=== PATIENT | female | born 1970 | race Caucasian/White ===

== ENCOUNTER 2018-04-13 00:39 | Emergency (ER) | payer OTHER, MEDICAID ==
[~2018-04-13] VITALS: Ht 162.6 cm; Wt 77.1 kg
[2018-04-13 00:45] VITALS: BP 118/73
[2018-04-13] MEDS ORDERED: KETOROLAC 30 MG/ML VIAL IM ONE (01:05)
[2018-04-13 01:35] VITALS: BP 97/56
== END 2018-04-13 01:55 | disposition home or self-care (01) ==
LOC: MED 00:39
DX: S93.601A Unspecified sprain of right foot, initial encounter (principal); Z88.0 Allergy status to penicillin; X50.3XXA Overexertion from repetitive movements, initial encounter; Y93.01 Activity, walking, marching and hiking; Y99.8 Other external cause status; Y92.89 Other specified places as the place of occurrence of the external cause
CPT/HCPCS: 73620; 96372; 99284; J1885

== ENCOUNTER 2018-07-21 21:17 | Inpatient (IN) | payer OTHER, MEDICAID ==
[~2018-07-21] VITALS: Ht 162.6 cm; Wt 69.9 kg
--- NOTE | 2018-07-21 21:17 | NUR ---
PT EDUARDO BLS. TAKEN TO BED 3
[2018-07-21 21:18] VITALS: BP 87/48
--- NOTE | 2018-07-21 21:22 | NUR ---
47 Y/O F BIBA W/C/O BODY ACHES X 1 DAY. PT STATES, "I WAS AT [employer] AND THEN WHEN THE BILL CAME I HAD BODY PAIN ALL OVER." PT DENIES N/V/D; SKIN IS INTACT, PINK/WARM/DRY; AAOX4, PERRL, WITH EVEN AND STEADY GAIT; LUNGS CLEAR BL, BREATHING UNLABORED; HR EVEN AND REGULAR, BL PERIPHERAL PULSES PRESENT; BS ACTIVE X4, NO TENDERNESS TO PALPATION, NO HEPATOSPLENOMEGALLY PALPATED, RESONANT TO PERCUSSION; PT DENIES ANY FEVER, CP, SOB, OR COUGH AT THIS TIME; PT STATES 10/10 PAIN AT THIS TIME; VSS; PATIENT POSITIONED FOR COMFORT; HOB ELEVATED; BEDRAILS UP X2; BED DOWN. ER MD MADE AWARE OF PTS STATUS
[2018-07-21] MEDS ORDERED: NACL 0.9% 2,000 ML IV ONE (22:20)
--- NOTE | 2018-07-21 22:30 | NUR ---
PT RESTING COMFORTABLY IN BED. NAD. RR EVEN/UNLABORED.
--- NOTE | 2018-07-21 22:31 | NUR ---
EKG PERFORMED AT BEDSIDE, PT COVERED IN GOWN DURING PROCEDURE. SINUS TACHYCARDIA
--- NOTE | 2018-07-21 22:50 | NUR ---
Dr. Chahal evaluating patient at bedside.
[2018-07-21 22:56] LABS: BASOPHILS % (AUTO) 0.4 % (0.0-2.0); EOSINOPHILS # (AUTO) 0.1 K/uL (0-0.4); EOSINOPHILS % (AUTO) 1.8 % (0.0-4.0); HEMATOCRIT 32.5 % (36-48); HEMOGLOBIN 10.6 g/dL (12.0-16.0); LYMPHOCYTES # (AUTO) 2.1 K/uL (2.5-16.5); LYMPHOCYTES % (AUTO) 35.7 % (20.5-51.1); MEAN CORPUSCULAR HEMOGLOBIN 26 pg (27-31); MEAN CORPUSCULAR HGB CONC 33 g/dL (33-37); MEAN CORPUSCULAR VOLUME 79.8 fL (80-94); MONOCYTES # (AUTO) 0.4 K/uL (0.8-1.0); NEUTROPHILS # (AUTO) 3.3 K/uL (1.8-7.7); NEUTROPHILS % (AUTO) 55.1 % (42.2-75.2); PLATELET COUNT (AUTO) 134 K/uL (140-450); RED BLOOD CELL COUNT(AUTO) 4.07 MIL/uL (4.20-5.40)
[2018-07-21 23:05] LABS: CARBON DIOXIDE 25.8 mmol/L (21-32); CREATININE 0.7 mg/dL (0.6-1.3); POTASSIUM 3.8 mmol/L (3.5-5.1)
[2018-07-21] MEDS ORDERED: KETOROLAC 30 MG/ML VIAL IVP ONE (23:10)
[2018-07-21 23:11] LABS: ALBUMIN 3.2 g/dL (3.4-5.0); TOTAL BILIRUBIN 0.2 mg/dL (0.0-1.0)
[2018-07-22] MEDS ORDERED: AZITHROMYCIN 500 MG in DEXTROSE 5% 250 ML IV ONE (00:15)
[2018-07-22] MEDS ORDERED: MORPHINE SULFATE 2 MG/ML SYR IVP PRN (00:20)
[2018-07-22] MEDS ORDERED: ACETAMINOPHEN 325 MG TAB PO PRN (00:20)
[2018-07-22] MEDS ORDERED: LORazepam 2 MG/ML VIAL IM/IVP PRN (00:20)
[2018-07-22] MEDS ORDERED: HYDROcodone/APAP 5/325 MG 1 TAB TAB PO PRN (00:20)
[2018-07-22] MEDS ORDERED: ZOLPIDEM 5 MG TAB PO PRN (00:20)
[2018-07-22] MEDS ORDERED: ONDANSETRON 4 MG/2 ML VIAL IM/IVP PRN (00:20)
[2018-07-22] MEDS ORDERED: DOCUSATE SODIUM 100 MG GELCAP PO PRN (00:20)
--- NOTE | 2018-07-22 00:22 | NUR ---
Patient will be admitted to care of DR DENNIS. Admited to TELEMETRY. Will go to [id number]]. Belongings list completed.
--- NOTE | 2018-07-22 00:28 | NUR ---
Dr. Gutierrez evaluating patient at bedside.
[2018-07-22] MEDS ORDERED: LEVOFLOXACIN 750 MG/D5W PREMIX 150 ML IV ONE (00:30)
--- NOTE | 2018-07-22 00:50 | NUR ---
ADMITTED PT FROM ER VIA FREDDY. AAOX4. NO C/O PAIN AT THIS TIME. NO C/O SOB. ON ROOM AIR. IV TO RIGHT HAND #20G AND LEFT HAND #20G, PATENT AND INTACT. ORIENTED PT TO ROOM. DISCUSSED PLAN OF CARE, PT VERBALIZED UNDERSTANDING. SAFETY PRECAUTION IN PLACE. CALL LIGHT WITHIN REACH.
--- NOTE | 2018-07-22 00:54 | NUR ---
PT RESTING COMFORTABLY IN BED. NAD. RR EVEN/UNLABORED.
[2018-07-22] MEDS ORDERED: DEXTROSE 50% 50 ML SYR IVP PRN (00:55)
[2018-07-22] MEDS ORDERED: INSULIN LISPRO SLIDING SCALE 100 UNITS/ML VIAL SUBQ PRN (00:55)
[2018-07-22 01:00] VITALS: BP 95/47
[2018-07-22 01:14] LABS: PROTHROMBIN TIME 9.3 secs (10.8-13.4)
[2018-07-22] MEDS: NACL 0.9% 1,000 ML IV SCH ×2 (01:25→11:00)
--- NOTE | 2018-07-22 01:30 | NUR ---
PT'S BP 95/47. DR. MAN MADE AWARE. NO NEW ORDER AT THIS TIME.
[2018-07-22 01:31] LABS: CHOL/HDL RATIO 2.7 (1-4.5); MAGNESIUM 1.9 mg/dL (1.8-2.4); PHOSPHORUS 4.6 mg/dL (2.5-4.9); THYROID STIMULATING HORMONE 0.8 uIU/mL (0.34-3.74)
--- NOTE | 2018-07-22 01:42 | NUR ---
0136 SPUTUM CUP WAS GIVEN TO PATIENT TO GIVE SPUTUM SAMPLE. PATIENT VERBALLY REFUSED. LEFT CUP AT BEDSIDE
--- NOTE | 2018-07-22 03:45 | NUR ---
PT SLEEPING BUT EASILY AROUSABLE. NO S/S OF PAIN OR SOB.
[2018-07-22 04:00] VITALS: BP 99/62
--- NOTE | 2018-07-22 04:30 | NUR ---
PT REFUSED SCDS. PT AMBULATES WITHOUT ASSIST.
--- NOTE | 2018-07-22 06:21 | NUR ---
PT REFUSED BLOOD SUGAR CHECK. DR. MAN MADE AWARE.
[2018-07-22] MEDS: BLOOD GLUCOSE MONITORING 1 DEV DEV FS SCH ×2 (06:28→11:30)
--- NOTE | 2018-07-22 07:09 | NUR ---
ENDORSED PT TO DAY SHIFT NURSE. PT IN STABLE CONDITION.
--- NOTE | 2018-07-22 07:10 | NUR ---
RECEIVED REPORT FROM [employer]OMOTIVE TECHNICIAN NURSE. PATIENT LYING DOWN IN BED SLEEPING, AROUSABLE BY VOICE. NO DISTRESS NOTED. DENIES ANY PAIN. RESPIRATIONS EVEN, UNLABORED, ON ROOM AIR. AAOX3, CALM, COOPERATIVE, SKIN COLOR APPROPRIATE TO ETHNICITY, WARM TO TOUCH. SKIN IS INTACT. LUNGS CTA ON ALL LOBES. ABDOMEN SOFT, NON-DISTENDED. IV SITE COMPLETELY OUT, WILL INSERT NEW IV LINE LATER. REVIEWED PLAN OF CARE WITH PATIENT. PATIENT VERBALIZED UNDERSTANDING. SAFETY MEASURES IN PLACE, CALL LIGHT WITHIN REACH. WILL CONTINUE TO MONITOR.
--- NOTE | 2018-07-22 07:45 | NUR ---
PATIENT REFUSED AM BLOOD DRAW. WILL NOTIFY
[2018-07-22 08:00] VITALS: BP 96/56
[2018-07-22] MEDS ORDERED: FERROUS SULFATE 325 MG TABEC PO SCH (08:00)
[2018-07-22] MEDS ORDERED: AZITHROMYCIN 250 MG TAB PO SCH (09:00)
[2018-07-22] MEDS ORDERED: ASCORBIC ACID 500 MG TAB PO SCH (09:00)
[2018-07-22] MEDS ORDERED: NICOTINE TRANSD SYS 14 MG/24 HR PATCH TD SCH (09:00)
--- NOTE | 2018-07-22 09:01 | NUR ---
PATIENT LYING DOWN IN BED SLEEPING, AROUSABLE BY VOICE. NO DISTRESS NOTED. DENIES ANY PAIN. SCHEDULED MEDICATIONS NOT GIVEN DUE TO PATIENT REFUSING. WILL CONTINUE TO MONITOR.
--- NOTE | 2018-07-22 09:11 | NUR ---
PATIENT HAS BEEN SCREENED AND CATEGORIZED MODERATE NUTRITION RISK. PATIENT WILL BE SEEN WITHIN 3-5 DAYS OF ADMISSION. 07/24/18 07/26/[address] [address]
--- NOTE | 2018-07-22 09:30 | NUR ---
PATIENT REFUSED NEW IV LINE START SHE SAYS "I'M GOING HOME TODAY". WILL NOTIFY
--- NOTE | 2018-07-22 11:02 | NUR ---
PATIENT LYING DOWN IN BED SLEEPING, AROUSABLE BY VOICE. NO DISTRESS NOTED. REFUSED INFLUENZA NARES COLLECTION, RADIOLOGY FOR US OF ARTERIAL AND VENOUS. NOTIFIED DR. JIMENEZ. DR. JIMENEZ TO SPEAK TO PATIENT. WILL CONTINUE TO MONITOR.
[2018-07-22 12:00] VITALS: BP 95/55
--- NOTE | 2018-07-22 12:05 | NUR ---
PATIENT LYING DOWN IN BED SLEEPING, AROUSABLE BY VOICE. NO DISTRESS NOTED. DENIES ANY PAIN. V/S TAKEN, REFUSED BLOOD GLUCOSE CHECK. WILL CONTINUE TO MONITOR.
[2018-07-22] MEDS ORDERED: FER325 PO (12:59)
--- NOTE | 2018-07-22 13:38 | NUR ---
1130 MET WITH PT AT BEDSIDE AND DISCUSSED DISCHARGE PLAN. PT STATED THAT SHE WANTS A [employer]AX[employer] VOUCHER TO GO TO [facility] BUT WOULD NOT PROVIDE AN ADDRESS. INFORMED THAT SHE WILL BE PROVIDED WITH A BUS PASS. PT IN AGREEMENT. ASKED PT IF SHE NEEDED ANY RESOURCES OR ASSISTANCE POST DISCHARGE AND SHE STATED NO THAT SHE WILL GO BACK TO [facility] WHERE SHE WAS RESIDING AND DECLINED ANY TYPE OF ASSISTANCE OR RESOURCES.
--- NOTE | 2018-07-22 13:53 | NUR ---
DISCHARGE INSTRUCTIONS PROVIDED TO PATIENT IN PREFERRED LANGUAGE OF [facility], FOLLOW-UP VISIT WITH PCP, NEW MEDICATION REGIMEN, DIET REGIMEN, AND DISEASE PROCESS/MANAGEMENT OF DM. ANSWERED ALL OF PATIENT'S QUESTIONS REGARDING DISCHARGE. PATIENT VERBALIZED COMPLETE UNDERSTANDING. [facility] RESOURCE PACKET GIVEN. HOMELESS WAIVER FORM SIGNED. IV SITES REMOVED WITH MINIMAL BLOOD AND LUMEN COMPLETELY INTACT. ID BANDS REMOVED. BUS PASS GIVEN TO PATIENT. AWAITING FOR PATIENT TO GET DRESSED. WILL CONTINUE TO MONITOR.
--- NOTE | 2018-07-22 14:10 | NUR ---
PATIENT ALL DRESSED UP AND READY TO GO TO [facility]. ESCORTED PATIENT DOWN TO LOBBY VIA AMBULATION. PATIENT DISCHARGED AT THIS TIME VIA PUBLIC VEHICLE IN STABLE CONDITION.
[2018-07-23] MEDS ORDERED: LEVOFLOXACIN 750 MG/D5W PREMIX 150 ML IV SCH
[2018-07-23] MEDS ORDERED: AZITHROMYCIN 250 MG TAB PO SCH (09:00)
[2018-07-23 15:20] LABS: FOLIC ACID 3.5 ng/mL (>3.0)
== END 2018-07-22 14:10 | disposition home or self-care (01) | DRG 194 ==
LOC: MED 21:17 → MTU 07-22 00:22
PROVIDERS: ADMIT General Practice; ATTEND General Practice
DX: J18.9 Pneumonia, unspecified organism (principal); D68.59 Other primary thrombophilia; E44.0 Moderate protein-calorie malnutrition; D64.9 Anemia, unspecified; E11.65 Type 2 diabetes mellitus with hyperglycemia; D69.6 Thrombocytopenia, unspecified; Z68.26 Body mass index [BMI] 26.0-26.9, adult; Z88.0 Allergy status to penicillin; F17.200 Nicotine dependence, unspecified, uncomplicated; I95.9 Hypotension, unspecified; B34.9 Viral infection, unspecified
CPT/HCPCS: 36415; 71045; 80053; 82607; 82728; 82746; 83036; 83540; 83605; 83690; 83735; 84100; 84134; 84443; 84484; 84702; 85025; 85045; 85610; 85730; 87040; 87081; 93005; 96361; 96374; 96375; 99285; G0482; J0696; J1815; J1885; J1956; J7030; J7060; Q0092

== ENCOUNTER 2021-05-27 18:57 | Emergency (ER) | payer MEDICAID, OTHER ==
[~2021-05-27] VITALS: Ht 165.1 cm; Wt 77.1 kg
[~2021-05-27 18:57] MED LIST: FER325 PO
[2021-05-27 19:01] VITALS: BP 118/74
[2021-05-27] MEDS ORDERED: IBUP-2809 PO (20:44)
--- NOTE | 2021-05-27 22:02 | NUR ---
Patient discharged with v/s stable. Written and verbal after care instructions given and explained. Patient alert, oriented and verbalized understanding of instructions. Ambulatory with steady gait. All questions addressed prior to discharge. ID band removed. Patient advised to follow up with PMD. Rx of MOTRIN given. Patient educated on indication of medication including possible reaction and side effects. Opportunity to ask questions provided and answered. SEE DISCHARGE DISPOSITION FOR FURTHER INFORMATION.
== END 2021-05-27 22:02 | disposition home or self-care (01) ==
LOC: MED 18:57
DX: M79.10 Myalgia, unspecified site (principal); Z88.0 Allergy status to penicillin
CPT/HCPCS: 99283